=== PATIENT | female | born 1990 | race Two or more races ===

== ENCOUNTER 2016-07-10 10:44 | Emergency (ER) | payer MEDICAID ==
[2016-07-10 11:24] VITALS: BP 118/74; PULSE 98; RESP 16; TEMP 98.6; O2SAT 96
--- NOTE | 2016-07-10 12:44 | UCPHY ---
H & P Patient Type: Established Chief Complaint Nursing Narrative: anal area pain . x 4 days . irritated . Denies f/c. EDC 09/24/16 Source: Patient Exam Limitations: No limitations - Personal History LMP (Females 10-55): Tetanus Vaccine Date: WITHIN 10 YRS - Medical/Surgical History Hx Asthma: No Hx Chronic Respiratory Disease: No Hx Diabetes: No Hx Cardiac Disease: No Hx Renal Disease: No Hx Cirrhosis: No Hx Alcoholism: No Hx HIV/AIDS: No Hx Splenectomy or Spleen Trauma: No Other PMH: [facility]CP [facility]. Flu +. Tetanus UTD. Denies med surg. - Family History Significant Family History: No pertinent family hx - Social History Smoking Status: Never smoked Time Seen by Provider: 07/10/16 12:19 HPI/ROS: CHIEF COMPLAINT: rectal pain HISTORY OF PRESENT ILLNESS: 26-year-old female presents complaining of rectal pain and burning with itching x 4 days. Patient is 26 weeks with twins, 1st noticed her symptoms 4 days ago. She denies fevers, chills, nausea or vomiting, no abdominal pain, no vaginal discharge or vaginal bleeding. Patient denies history of STDs, no previous histories of HSV or no previous history of hemorrhoids. Patient denies other complaints. REVIEW OF SYSTEMS: A comprehensive 10 point review of systems is otherwise negative aside from elements mentioned in the history of present illness. (Freida Soliz) - Physical Exam Exam: GEN: Awake, alert, oriented, no acute distress RESP: nl resp effort Cardiac regular rate and rhythm :fluid filled blisters to perineal area between rectum and vagina some of which have erupted. No surrounding erythema, no vaginal discharge, no hemorrhoids. (Freida Soliz) Constitutional: Initial Vital Signs Temperature (C) 37 C 07/10/16 11:19 Heart Rate 98 07/10/16 11:19 Respiratory Rate 16 07/10/16 11:19 Blood Pressure 118/74 07/10/16 11:19 O2 Sat (%) 96 07/10/16 11:19 O2 Delivery Mode Room Air Allergies/Adverse Reactions: No Known Allergies Allergy (Verified 07/10/16 11:24) Home Medications: Medication Instructions Recorded Pnv95/Ferrous Fumarate/FA 1 each PO DAILY #30 tablet 02/02/16 [ Vitamin Tablet] Acyclovir 400 mg PO TID 10 Days 07/10/16 Hydrocodone/APAP 5/325 [[place] 1 tab PO Q4H PRN #10 tab 07/10/16 5/325] Lidocaine 2% Jelly [Lidocaine 2% 1 ml TP Q3 PRN #1 tube 07/10/16 Jelly 30 gm] Medical Decision Making ED Course/Re-evaluation: 26-year-old female who is 26 weeks presents perineal sores consistent diagnosis of genital herpes. HCV swab obtained and sent to lab and is pending. Patient is discharged with a prescription of acyclovir, lidocaine jelly and Vicodin. She agrees to follow up [facility] seen a who is her OBGYN. Patient is educated on the contagiousness of this sexually transmitted disease, she is encouraged to abstain from intercourse. Patient is to return for any fevers, abdominal pain, vaginal bleeding or discharge, any other questions or concerns. (Freida Soliz) Urgent Care PA supervision Physician documentation: The patient was evaluated and managed by the physician housing assistant property manager. My co- signature indicates that I have reviewed this chart and I agree with the findings and plan of care as documented. I am is secondary supervising physician. (Chad Dalton) Differential Diagnosis: Diagnosis considered but not limited to hemorrhoid, herpes simplex virus, contact dermatitis, other STD. (Freida Soliz) Departure - Departure Disposition: Home, Routine, Self-Care Clinical Impression: HSV (herpes simplex virus) infection Condition: Good Instructions: Genital Herpes Simplex (ED) Additional Instructions: Take your medication as prescribed, 400 mg of acyclovir 3 times a day for 10 days. Take 1 [place] every 4-6 hours as needed for severe pain, this causes drowsiness, do not drive or operate machinery while taking this. Use lidocaine gel externally as needed for pain. Follow-up with your OBGYN this week for re- evaluation. Avoid having intercourse during your outbreak. Referrals: GUZMAN DELATORRE,. [Primary Care Provider] - As per Instructions Prescriptions: Acyclovir 400 mg PO TID 10 Days Lidocaine 2% Jelly [Lidocaine 2% Jelly 30 gm] 1 ml TP Q3 PRN #1 tube PRN Reason: Pain, Breakthrough Hydrocodone/APAP 5/325 [[place] 5/325] 1 tab PO Q4H PRN #10 tab PRN Reason: Pain, Moderate - PQRS PQRS Measurement: na (Freida Soliz)
[2016-07-11 22:12] LABS: SPECIMEN SOURCE PERIANAL (()); VARICELLA ZOSTER NEGATIVE (Negative)
== END 2016-07-10 13:20 | disposition home or self-care (01) ==
LOC: CED 10:44
DX: O98.312 Other infections with a predominantly sexual mode of transmission complicating pregnancy, second trimester (principal); A60.09 Herpesviral infection of other urogenital tract; O30.002 Twin pregnancy, unspecified number of placenta and unspecified number of amniotic sacs, second trimester; Z3A.26 26 weeks gestation of pregnancy
CPT/HCPCS: 87529-90; 99214-PO; G0463-PO

== ENCOUNTER 2016-07-29 12:11 | Emergency (ER) | payer MEDICAID | END 2016-07-29 12:23 | disposition left against medical advice (07) | LOC: CED 12:11 | DX: O20.0 Threatened abortion (principal); Z3A.32 32 weeks gestation of pregnancy ==

== ENCOUNTER 2017-02-25 18:10 | Emergency (ER) | payer MEDICAID ==
[2017-02-25 18:30] VITALS: BP 108/77; PULSE 88; RESP 16; TEMP 98.8; O2SAT 96
--- NOTE | 2017-02-25 18:46 | EDPHY ---
H & P Stated Complaint: RASH ABOVE L EYE AFTER GETTING EYEBROWS WAXED 5 DAYS AGO Time Seen by Provider: 02/25/17 18:33 HPI/ROS: CHIEF COMPLAINT: Rash HISTORY OF PRESENT ILLNESS: The patient is a 26-year-old female who comes to the emergency department for her child who has a cough but she is also concerned about a small rash over her left eyebrow. She states that it developed after she had her eyebrows waxed 4 days ago. She has 4 or 5 small pustules. No fever. No vision changes. She was concerned that maybe she had viral herpes. REVIEW OF SYSTEMS: Constitutional: denies: chills, fever, recent illness, recent injury EENTM: denies: blurred vision, double vision, nose congestion Respiratory: denies: cough, shortness of breath Cardiac: denies: chest pain, irregular heart rate, lightheadedness, palpitations Gastrointestinal/Abdominal: denies: abdominal pain, diarrhea, nausea, vomiting, blood streaked stools Genitourinary: denies: dysuria, frequency, hematuria, pain Musculoskeletal: denies: joint pain, muscle pain Skin: See HPI Neurological: denies: headache, numbness, paresthesia, tingling, dizziness, weakness Hematologic/Lymphatic: denies: blood clots, easy bleeding, easy bruising Immunologic/allergic: denies: HIV/AIDS, transplant EXAM: GENERAL: Well-appearing, well-nourished and in no acute distress. HEAD: Atraumatic, normocephalic. EYES: Pupils equal round and reactive to light, extraocular movements intact, sclera anicteric, conjunctiva are normal. ENT: TMs normal, nares patent, oropharynx clear without exudates. Moist mucous membranes. NECK: Normal range of motion, supple without lymphadenopathy or JVD. LUNGS: Breath sounds clear to auscultation bilaterally and equal. No wheezes rales or rhonchi. HEART: Regular rate and rhythm without murmurs, rubs or gallops. ABDOMEN: Soft, nontender, normoactive bowel sounds. No guarding, no rebound. No masses appreciated. BACK: No CVA tenderness, no spinal tenderness, step-offs or deformities EXTREMITIES: Normal range of motion, no pitting or edema. No clubbing or cyanosis. NEUROLOGICAL: Cranial nerves II through XII grossly intact. Normal speech, normal gait. 5/5 strength, normal movement in all extremities, normal sensation PSYCH: Normal mood, normal affect. SKIN: The patient has 4 or 5 small pustules over left eyebrow. Consistent with folliculitis. Source: Patient Exam Limitations: No limitations - Personal History LMP (Females 10-55): 22-28 Days Ago Current Tetanus Diphtheria and Acellular Pertussis (TDAP): Yes Tetanus Vaccine Date: WITHIN 10 YRS - Medical/Surgical History Hx Asthma: No Hx Chronic Respiratory Disease: No Hx Diabetes: No Hx Cardiac Disease: No Hx Renal Disease: No Hx Cirrhosis: No Hx Alcoholism: No Hx HIV/AIDS: No Hx Splenectomy or Spleen Trauma: No Other PMH: [facility]. Flu +. Tetanus UTD. Denies med surg. - Family History Significant Family History: No pertinent family hx - Social History Smoking Status: Never smoked Alcohol Use: Sober Drug Use: None Constitutional: Initial Vital Signs Temperature (C) 37.1 C 02/25/17 18:29 Heart Rate 88 02/25/17 18:29 Respiratory Rate 16 02/25/17 18:29 Blood Pressure 108/77 02/25/17 18:29 O2 Sat (%) 96 02/25/17 18:29 O2 Delivery Mode Room Air Allergies/Adverse Reactions: No Known Allergies Allergy (Verified 07/10/16 11:24) Home Medications: Medication Instructions Recorded Pnv95/Iron Fum/Folic Acid 1 each PO DAILY #30 tablet 02/02/16 [ Vitamin Tablet] Acyclovir 400 mg PO TID 10 Days 07/10/16 Hydrocodone/APAP 5/325 [[place] 1 tab PO Q4H PRN #10 tab 07/10/16 5/325] Lidocaine 2% Jelly [Lidocaine 2% 1 ml TP Q3 PRN #1 tube 07/10/16 Jelly 30 gm] Medical Decision Making ED Course/Re-evaluation: The patient was concerned about herpes because she has 6-month-old twins. This appears more consistent with the pustules or folliculitis. I recommended antibiotic ointment. The patient is happy with this and declines further workup or testing. Differential Diagnosis: Partial list of the Differential diagnosis considered include but were not limited to; folliculitis, pustules, herpes and although unlikely based on the history and physical exam, I also considered the cellulitis, herpes ophthalmicus . I discussed these differential diagnoses and the plan with the patient as well as the usual and expected course. The patient understands that the diagnosis is provisional and that in medicine we are not always correct and that further workup is often warranted. Usual and customary warnings were given. All of the patient's questions were answered. The patient was instructed to return to the emergency department should the symptoms at all worsen or return, otherwise to followup with the physician as we discussed. Departure - Departure Disposition: Home, Routine, Self-Care Clinical Impression: Pustule Condition: Fair Instructions: Folliculitis (ED) Referrals: GUZMAN DELATORRE,. [Primary Care Provider] - As per Instructions
== END 2017-02-25 18:52 | disposition home or self-care (01) ==
LOC: CED 18:10
DX: L08.9 Local infection of the skin and subcutaneous tissue, unspecified (principal)

== ENCOUNTER 2017-03-28 16:19 | Emergency (ER) | payer MEDICAID ==
[2017-03-28 16:46] VITALS: BP 116/66; PULSE 100; RESP 20; TEMP 98.6; O2SAT 95
--- NOTE | 2017-03-28 17:08 | EDPHY ---
H & P HPI/ROS: CHIEF COMPLAINT: Sore on lip History by patient HISTORY OF PRESENT ILLNESS: 26-year-old woman presents complaining of a persistent "canker sore "in the middle of her bottom lip which is pierced. Patient states that she gets frequent "canker sores "but that this 1 has not gone away for almost a month. She has had a lip piercing for about 4 months. She denies any lesions in her genital area but does say she feels a 2nd sore coming on on the left side of her lower gingiva. She is otherwise well with no fevers or systemic symptoms. REVIEW OF SYSTEMS: As in HPI, and all other systems reviewed and are negative Smoking Status: Former smoker Physical Exam: General Appearance: Alert and no distress. Head: normocephalic, atraumatic, no sinus tenderness Eyes: Pupils equal and round no injection. OP: mucus membranes moist, no tonsillar enlargement, no exudates, positive 1 cm abscess ulcer at junction of the gingiva an oral mucosa in the center of her lower lip, just below and intact piercing. Positive 3 mm red lesion on the labial surface of left lower lip just above piercing Neck: no meningismus, no cervical nodes, no submandibular nodes Skin: No rashes or lesions except as described above. Constitutional: Initial Vital Signs Temperature (C) 37.0 C 03/28/17 16:43 Heart Rate 100 03/28/17 16:43 Respiratory Rate 20 03/28/17 16:43 Blood Pressure 116/66 03/28/17 16:43 O2 Sat (%) 95 03/28/17 16:43 O2 Delivery Mode Room Air Allergies/Adverse Reactions: No Known Allergies Allergy (Verified 03/28/17 16:47) Home Medications: Medication Instructions Recorded Lidocaine 5% [Lidocaine 5% Oint] 1 ann TP TID PRN #1 ointtube 03/28/17 Neurontin 03/28/17 Valacyclovir HCl [Valacyclovir] 2,000 mg PO BID #20 tablet 03/28/17 Wellbutrin Sr 03/28/17 MDM/Departure - MDM ED Course/Re-evaluation: 26-year-old woman who is otherwise healthy with no history of immunocompromise presents with recurrent oral aphthous ulcers. I suspect this 1 is persistent because it is in the area of her piercing I am recommending she removed the piercing until the lesion has healed. We will give her a trial of oral antivirals. We discussed need for follow-up with dentist or oral surgeon if her lesion persists despite removing the piercing and oral antivirals. She is given topical lidocaine for pain control. Patient understands and is agreeable to this plan. - Depart Disposition: Home, Routine, Self-Care Clinical Impression: Oral aphthous ulcer Condition: Good Instructions: Oral Herpes Simplex Virus Infections (ED) Additional Instructions: You were seen by Dr. Deisi Levy today. Take the antiviral medicine as prescribed - 4 pills twice a day for one day only. You may use topical lidocaine for pain. If the lesion does not clear up in the next 2 weeks please follow-up with a dentist or oral surgeon to have it more closely evaluated. Return for any worsening or new concerns. Prescriptions: Lidocaine 5% [Lidocaine 5% Oint] 1 ann TP TID PRN #1 ointtube PRN Reason: pain Valacyclovir HCl [Valacyclovir] 2,000 mg PO BID #20 tablet Referrals: GUZMAN DELATORRE,. [Primary Care Provider] - As per Instructions
== END 2017-03-28 17:33 | disposition home or self-care (01) ==
LOC: CED 16:19
DX: K12.0 Recurrent oral aphthae (principal); Z87.891 Personal history of nicotine dependence

== ENCOUNTER 2017-05-17 14:02 | Emergency (ER) | payer MEDICAID ==
[2017-05-17 14:14] VITALS: RESP 18
--- NOTE | 2017-05-17 14:20 | EDPHY ---
H & P Stated Complaint: severe right calf pain for 5 days Time Seen by Provider: 05/17/17 14:11 HPI/ROS: CHIEF COMPLAINT: Right calf pain HISTORY OF PRESENT ILLNESS: The patient is a 26-year-old female who comes to the emergency department complaining of right calf pain. She states that it hurt suddenly when she was standing with flat feet leaning over a small couch. She felt a tear or pain in her right calf. It is hurt every day since then. It does not hurt with weight-bearing but does hurt with walking or muscle flexion or toe pointing. She has not had a fever. No rash. No swelling. She does not smoke. No recent travel. She did have twins is 9 months ago but has not had any problem since then. No trauma. She does have a history of chronic sciatica on both legs but states that this feels different. REVIEW OF SYSTEMS: Constitutional: denies: chills, fever, recent illness, recent injury EENTM: denies: blurred vision, double vision, nose congestion Respiratory: denies: cough, shortness of breath Cardiac: denies: chest pain, irregular heart rate, lightheadedness, palpitations Gastrointestinal/Abdominal: denies: abdominal pain, diarrhea, nausea, vomiting, blood streaked stools Genitourinary: denies: dysuria, frequency, hematuria, pain Musculoskeletal: See HPI Skin: denies: lesions, rash, jaundice, bruising Neurological: denies: headache, numbness, paresthesia, tingling, dizziness, weakness Hematologic/Lymphatic: denies: blood clots, easy bleeding, easy bruising Immunologic/allergic: denies: HIV/AIDS, transplant EXAM: GENERAL: Well-appearing, well-nourished and in no acute distress. HEAD: Atraumatic, normocephalic. EYES: Pupils equal round and reactive to light, extraocular movements intact, sclera anicteric, conjunctiva are normal. ENT: TMs normal, nares patent, oropharynx clear without exudates. Moist mucous membranes. NECK: Normal range of motion, supple without lymphadenopathy or JVD. LUNGS: Breath sounds clear to auscultation bilaterally and equal. No wheezes rales or rhonchi. HEART: Regular rate and rhythm without murmurs, rubs or gallops. ABDOMEN: Soft, nontender, normoactive bowel sounds. No guarding, no rebound. No masses appreciated. BACK: No CVA tenderness, no spinal tenderness, step-offs or deformities EXTREMITIES: Right calf tenderness and pain, positive Homans. No swelling or edema. No rash NEUROLOGICAL: Cranial nerves II through XII grossly intact. Normal speech, normal gait. 5/5 strength, normal movement in all extremities, normal sensation PSYCH: Normal mood, normal affect. SKIN: Warm, dry, normal turgor, no visible rashes or lesions. Source: Patient Exam Limitations: No limitations - Personal History Current Tetanus/Diphtheria Vaccine: No Current Tetanus Diphtheria and Acellular Pertussis (TDAP): No Tetanus Vaccine Date: WITHIN 10 YRS - Medical/Surgical History Hx Asthma: No Hx Chronic Respiratory Disease: No Hx Diabetes: No Hx Cardiac Disease: No Hx Renal Disease: No Hx Cirrhosis: No Hx Alcoholism: No Hx HIV/AIDS: No Hx Splenectomy or Spleen Trauma: No Other PMH: sciatica - Family History Significant Family History: No pertinent family hx - Social History Smoking Status: Former smoker Alcohol Use: Sober Drug Use: None Constitutional: Initial Vital Signs Temperature (C) 37.2 C 05/17/17 14:11 Heart Rate 80 05/17/17 14:11 Respiratory Rate 18 05/17/17 14:11 Blood Pressure 133/69 H 05/17/17 14:11 O2 Sat (%) 98 05/17/17 14:11 O2 Delivery Mode Room Air Allergies/Adverse Reactions: No Known Allergies Allergy (Verified 05/17/17 14:10) Home Medications: Medication Instructions Recorded Neurontin 03/28/17 Wellbutrin Sr 03/28/17 Medical Decision Making - Diagnostics Imaging Results: Imaging Impressions Extremity Venous Study 05/17/17 14:18 Impression: No deep venous thrombosis right leg. Findings and recommendations discussed with Emergency Department physician, MARÍA VEGA at 14:52 hour, 05/17/2017. Final report concurs with initial preliminary interpretation. Imaging: Discussed imaging studies w/ inbound call center agent Radiologist ED Course/Re-evaluation: We discussed the ultrasound results. The patient is reassured. I suspect that she has a muscle tear or tendon strain. She is able to stand on her Tippy toes but with significant pain. I suggested anti-inflammatories and compression and rest. She agrees with this plan and will follow up with her regular doctor. We discussed indications for returning. Differential Diagnosis: Partial list of the Differential diagnosis considered include but were not limited to; DVT, muscle strain, tendon injury and although unlikely based on the history and physical exam, I also considered fracture, infection. I discussed these differential diagnoses and the plan with the patient as well as the usual and expected course. The patient understands that the diagnosis is provisional and that in medicine we are not always correct and that further workup is often warranted. Usual and customary warnings were given. All of the patient's questions were answered. The patient was instructed to return to the emergency department should the symptoms at all worsen or return, otherwise to followup with the physician as we discussed. Departure - Departure Disposition: Home, Routine, Self-Care Clinical Impression: Right calf pain Condition: Fair Instructions: Muscle Strain (ED), Leg Pain (ED) Additional Instructions: Take ibuprofen daily as we discussed Referrals: [facility] DELATORRE,. [Clinic] - As per Instructions
[2017-05-17 15:09] VITALS: BP 128/67; PULSE 74; TEMP 98.6; O2SAT 96
== END 2017-05-17 15:09 | disposition home or self-care (01) ==
LOC: CED 14:02
DX: M79.604 Pain in right leg (principal); Z87.891 Personal history of nicotine dependence
CPT/HCPCS: 93971-PO

== ENCOUNTER 2017-10-09 10:39 | Emergency (ER) | payer MEDICAID ==
[2017-10-09] MEDS ORDERED: DEXAMETHASONE 10 MG/ML VIAL IVP ONE (10:53)
[2017-10-09] MEDS ORDERED: KETOROLAC 30 MG/1 ML SDV IVP ONE (10:53)
[2017-10-09] MEDS ORDERED: NS 1,000 ML IV ONE (10:53)
--- NOTE | 2017-10-09 10:58 | EDPHY ---
H & P Time Seen by Provider: 10/09/17 10:44 HPI/ROS: HPI Sore throat, body aches. 27-year-old female by private vehicle. She reports having a worsening sore throat since yesterday. She also describes having muscle aches and joint aches. No cough. She reports she has had a difficult time swallowing liquids because of pain since this morning. She reports intermittent fever and swollen lymph nodes in her neck. No recent dental work. ROS: Constitutional: As above. No weakness. Eyes: No discharge. No changes in vision. ENT: As above. No nasal congestion or rhinorrhea. Respiratory: No cough. No shortness of breath. Cardiac: No chest pain, no palpitations. Gastrointestinal: No abdominal pain, no vomiting, no diarrhea. Genitourinary: No hematuria. No dysuria or increased frequency with urination. Musculoskeletal: No back pain. No neck pain. No myalgias or arthralgias. Skin: No rashes. Neurological: No headache. No focal weakness or altered sensation. Past medical history: Depression. Last menstrual period 6 days ago. Social history: Nonsmoker. Here by herself. Denies alcohol. Physical Exam: General Appearance: Alert, she appears uncomfortable but not in distress. This patient is responding to questions appropriately and in full sentences. This patient appears well-hydrated and well-nourished. Eyes: Pupils equal and round no pallor or injection. No lid edema, erythema or injection. ENT, Mouth: Mucous membranes are moist. Diffuse pharyngeal erythema involving the posterior pharynx, pharyngeal arches and tonsils. Scant white exudates on the tonsils right side greater than left side. Mild pharyngeal edema. No asymmetry suggestive of abscess. No erythema or exudates. No stridor on auscultation of her neck. No voice changes. Bilateral upper anterior cervical lymphadenopathy. Respiratory: There are no retractions, lungs are clear to auscultation with good air movement bilaterally. Cardiovascular: Regular rate and rhythm. No murmur. Neurological: Motor sensory function is grossly intact. Cranial nerves are normal. Gait is normal. Skin: Warm and dry, no rashes. Musculoskeletal: Neck is supple and nontender. Extremities are symmetrical. All joints range without pain or impingement. Psychiatric: No agitation. No depression. Database: EKG: Imaging: Soft tissue neck x-ray series: No evidence of retropharyngeal abscess, epiglottitis or airway obstruction. Interpreted by me. Procedures: Emergency department course: Vital signs reviewed. IV was placed. She was started on IV normal saline with 1 L to be given over the next hour secondary to dehydration. Strep swab obtained. She has no contraindications to NSAIDs. No renal dysfunction or history of peptic ulcer disease. She will be given 30 mg of IV Toradol and 10 mg of IV Decadron initial. 11:20 a.m., patient re-evaluated. Informed a positive strep test. No allergies to penicillin. She will be given 1.2 million units of IM pen G LA. 11:45 a.m., patient re-evaluated. Sleeping comfortably. Easily arousable. No stridor. No voice changes. Results of her emergency department workup discussed. She feels comfortable going home at this time. I will send her home with 2 Vicodin tablets as well to treat her pain. I will also prescribe a 1 time dose of Decadron to be taken tomorrow. Follow-up and return to emergency department precautions thoroughly reviewed with her. All of her questions were answered. She was discharged in good condition. Differential Diagnosis: The differential diagnosis on this patient includes but is not limited to streptococcal pharyngitis, viral pharyngitis. Peritonsillar abscess, retropharyngeal abscess, epiglottitis, tracheitis unlikely. This represents a partial list of diagnoses considered. These considerations are based on history , physical exam, past history, reassessment and diagnostic testing. Smoking Status: Former smoker Constitutional: Initial Vital Signs Temperature (C) 36.6 C 10/09/17 10:59 Heart Rate 54 L 10/09/17 10:59 Respiratory Rate 20 10/09/17 10:59 Blood Pressure 128/81 H 10/09/17 10:59 O2 Sat (%) 96 10/09/17 10:59 O2 Delivery Mode Room Air Allergies/Adverse Reactions: No Known Allergies Allergy (Verified 05/17/17 14:10) Home Medications: Medication Instructions Recorded Neurontin 03/28/17 Wellbutrin Sr 03/28/17 Dexamethasone [Decadron] 8 mg PO DAILY #2 tab 10/09/17 Medical Decision Making - Data Points Laboratory Results: 10/09/17 10/09/17 10/09/17 10:59 10:30 10:30 Monoscreen NEGATIVE (NEGATIVE) Influenza A,B Rapid NEGATIVE FOR FLU (NEGATIVE) Group A Strep Screen POSITIVE H (NEGATIVE) Medications Given: Discontinued Medications Dexamethasone (Decadron Injection) 10 mg IVP EDNOW ONE Stop: 10/09/17 10:54 Last Admin: 10/09/17 11:05 Dose: 10 mg Sodium Chloride (Ns) 1,000 mls @ 0 mls/hr IV ONCE ONE; Wide Open PRN Reason: Protocol Stop: 10/09/17 10:54 Last Admin: 10/09/17 11:05 Dose: 1,000 mls Ketorolac Tromethamine (Toradol) 30 mg IVP EDNOW ONE Stop: 10/09/17 10:54 Last Admin: 10/09/17 11:05 Dose: 30 mg Penicillin G Benzathine (Bicillin L-A) 1,200,000 unit IM EDNOW ONE PRN Reason: Protocol Stop: 10/09/17 11:19 Last Admin: 10/09/17 11:28 Dose: 1,200,000 unit Departure - Departure Disposition: Home, Routine, Self-Care Clinical Impression: Acute streptococcal pharyngitis Condition: Good Instructions: Strep Throat (ED) Additional Instructions: Read and follow provided instructions. Follow-up with your primary care physician in 1-2 days for re-evaluation. Take medication as prescribed. 1 time dose of Decadron is to be taken tomorrow at about noon. You can start taking ibuprofen tonight after 8:00 p.m.. Ibuprofen dosin mg every 6 hours with meals for the next 3 days only. Take only as needed for pain. Keep well hydrated. Drink lots of fluids. Return to the emergency department for worsening symptoms, worsening pain, voice changes, stridor, difficulty breathing or other serious concerns. Referrals: GUZMAN DELATORRE [Other] - As per Instructions Prescriptions: Dexamethasone [Decadron] 8 mg PO DAILY #2 tab
[2017-10-09 11:02] VITALS: TEMP 98
[2017-10-09 11:16] VITALS: RESP 18
[2017-10-09] MEDS ORDERED: BICILLIN L-A 1200000 UNIT/2 ML SYRINGE IM ONE (11:18)
[2017-10-09] MEDS ORDERED: HYDROCODONE/APAP 5/325 TAB PO ONE (11:49)
[2017-10-09 12:21] VITALS: BP 137/62; PULSE 78; O2SAT 97
== END 2017-10-09 12:19 | disposition home or self-care (01) ==
LOC: CED 10:39
DX: J02.0 Streptococcal pharyngitis (principal); E86.9 Volume depletion, unspecified; Z87.891 Personal history of nicotine dependence
CPT/HCPCS: 70360-PO; 86308-PO; 87400-PO; 87880-PO; 96374; J0561; J1100; J1885

== ENCOUNTER 2017-10-26 14:08 | Emergency (ER) | payer MEDICAID ==
[2017-10-26 15:16] VITALS: BP 128/96
--- NOTE | 2017-10-26 15:57 | EDPHY ---
H & P Time Seen by Provider: 10/26/17 15:06 HPI/ROS: This patient that she might have a retained vaginal foreign body and requested a pelvic exam to evaluate for this. She explains that 2 days ago she had slight spotting which occasionally occurs with her in between periods without any other symptoms and used a tampon. She does not recall or removing the tampon is concerned that he may be"lost". ROS: No fevers or chills. HEENT: No complaints new line pulmonary: No complaints Cardiovascular: No lightheadedness GI: No abdominal pain. No nausea vomiting. : Last menstrual. Normal timing. No vaginal discharge. No vaginal pain. No urinary symptoms. Integumentary: No skin rash or genital lesions. 7 point ROS is otherwise negative. Past Medical/Surgical History: . Otherwise healthy Smoking Status: Former smoker Physical Exam: Physical Exam Vital signs are normal. General: No acute distress Lungs: No respiratory distress. Cardiac: Brisk capillary refill is intact throughout. Skin: No rash or pallor. Pelvic: External genitalia are normal with no lesions. Speculum exam reveals healthy appearing cervix with no erythema, discharge no vaginal foreign bodies, abrasions or discharge. Neuro: Alert with no sensorimotor deficits. Constitutional: Initial Vital Signs Temperature (C) 37.7 C 10/26/17 15:14 Heart Rate 96 10/26/17 15:14 Respiratory Rate 18 10/26/17 15:14 Blood Pressure 128/96 H 10/26/17 15:14 O2 Sat (%) 98 10/26/17 15:14 O2 Delivery Mode Room Air Allergies/Adverse Reactions: No Known Allergies Allergy (Verified 10/26/17 15:14) Home Medications: Medication Instructions Recorded NK [No Known Home Meds] 10/26/17 MDM/Departure - MDM ED Course/Re-evaluation: Discussion: Patient was not sure if she removed her tampon admits that she saw commercial with a woman who developed necrotizing fasciitis and lost her leg after leaving in a tampon in this prompted her fever of potential retained vaginal foreign body. Her exam is normal today. No evidence of STDs clinically or other abnormal findings. - Depart Disposition: Home, Routine, Self-Care Clinical Impression: Vaginal complaints Condition: Good Instructions: Vaginal Foreign Body (ED) Additional Instructions: Diagnosis: Vaginal symptoms Your vaginal speculum exam and cervix exam today is normal. There is no evidence of foreign body, infection or other abnormal findings at this time. Plan: Follow up with primary care physician for any ongoing symptoms. Referrals: [facility] DELATORRE [Other] - As per Instructions
== END 2017-10-26 15:59 | disposition home or self-care (01) ==
LOC: CED 14:08
DX: Z03.89 Encounter for observation for other suspected diseases and conditions ruled out (principal); Z87.891 Personal history of nicotine dependence

== ENCOUNTER 2018-01-01 15:42 | Emergency (ER) | payer MEDICAID ==
[2018-01-01] MEDS ORDERED: CLINDAMYCIN 150MG PREPACK#6 BTL TAKEHOME ONE (16:19)
[2018-01-01] MEDS ORDERED: HYDROCOD/APAP 5/325 PREPACK#6 BTL TAKEHOME ONE (16:19)
--- NOTE | 2018-01-01 16:19 | EDPHY ---
H & P Time Seen by Provider: 01/01/18 15:53 HPI/ROS: CHIEF COMPLAINT: Dental pain HISTORY OF PRESENT ILLNESS: The patient is a 27-year-old healthy female who comes to the emergency department complaining of dental pain. She states that it is becoming more painful over the last couple of weeks. She has an appointment with the dentist but not for 3 weeks from now. No trauma. No fever. No swelling. REVIEW OF SYSTEMS: Constitutional: denies: chills, fever, recent illness, recent injury EENTM: See HPI denies: blurred vision, double vision, nose congestion Respiratory: denies: cough, shortness of breath Cardiac: denies: chest pain, irregular heart rate, lightheadedness, palpitations Gastrointestinal/Abdominal: denies: abdominal pain, diarrhea, nausea, vomiting, blood streaked stools Genitourinary: denies: dysuria, frequency, hematuria, pain Musculoskeletal: denies: joint pain, muscle pain Skin: denies: lesions, rash, jaundice, bruising Neurological: denies: headache, numbness, paresthesia, tingling, dizziness, weakness Hematologic/Lymphatic: denies: blood clots, easy bleeding, easy bruising Immunologic/allergic: denies: HIV/AIDS, transplant EXAM: GENERAL: Well-appearing, well-nourished and in no acute distress. HEAD: Atraumatic, normocephalic. EYES: Pupils equal round and reactive to light, extraocular movements intact, sclera anicteric, conjunctiva are normal. ENT: See diagram, TMs normal, nares patent, oropharynx clear without exudates. Moist mucous membranes. NECK: Normal range of motion, supple without lymphadenopathy or JVD. LUNGS: Breath sounds clear to auscultation bilaterally and equal. No wheezes rales or rhonchi. HEART: Regular rate and rhythm without murmurs, rubs or gallops. ABDOMEN: Soft, nontender, normoactive bowel sounds. No guarding, no rebound. No masses appreciated. BACK: No CVA tenderness, no spinal tenderness, step-offs or deformities EXTREMITIES: Normal range of motion, no pitting or edema. No clubbing or cyanosis. NEUROLOGICAL: Cranial nerves II through XII grossly intact. Normal speech, normal gait. 5/5 strength, normal movement in all extremities, normal sensation PSYCH: Normal mood, normal affect. SKIN: Warm, dry, normal turgor, no visible rashes or lesions. Source: Patient - Personal History Tetanus Vaccine Date: WITHIN 10 YRS - Medical/Surgical History Hx Asthma: No Hx Chronic Respiratory Disease: No Hx Diabetes: No Hx Cardiac Disease: No Hx Renal Disease: No Hx Cirrhosis: No Hx Alcoholism: No Hx HIV/AIDS: No Hx Splenectomy or Spleen Trauma: No Other PMH: sciatica / depression - Family History Significant Family History: No pertinent family hx - Social History Smoking Status: Former smoker Alcohol Use: None Constitutional: Initial Vital Signs Temperature (C) 36.9 C 01/01/18 16:16 Heart Rate 86 01/01/18 16:16 Respiratory Rate 20 01/01/18 16:16 Blood Pressure 158/106 H 01/01/18 16:16 O2 Sat (%) 96 01/01/18 16:16 O2 Delivery Mode Room Air Allergies/Adverse Reactions: No Known Allergies Allergy (Verified 10/26/17 15:14) Home Medications: Medication Instructions Recorded NK [No Known Home Meds] 10/26/17 ED Images - Head Mouth: 1 - Decayed and eroded, surrounding erythema, tender Medical Decision Making ED Course/Re-evaluation: Patient has significant decay and likely mild infection abscess. I will start her on antibiotics and short supply of pain medication until she can follow up with the dentist. [facility] She is grateful for this. Differential Diagnosis: Partial list of the Differential diagnosis considered include but were not limited to; abscess, dental jessica, fracture and although unlikely based on the history and physical exam, I also considered pharyngeal abscess, sepsis. I discussed these differential diagnoses and the plan with the patient as well as the usual and expected course. The patient understands that the diagnosis is provisional and that in medicine we are not always correct and that further workup is often warranted. Usual and customary warnings were given. All of the patient's questions were answered. The patient was instructed to return to the emergency department should the symptoms at all worsen or return, otherwise to followup with the physician as we discussed. - Data Points Medications Given: Discontinued Medications Hydrocodone Bitart/Acetaminophen (Emmett 5/325mg Prepack#6) 1 btl TAKEHOME EDNOW ONE Stop: 01/01/18 16:20 Last Admin: 01/01/18 16:36 Dose: 1 btl Clindamycin (Cleocin 150 Mg Prepack#6) 1 btl TAKEHOME EDNOW ONE PRN Reason: Protocol Stop: 01/01/18 16:20 Last Admin: 01/01/18 16:35 Dose: 1 btl Departure - Departure Disposition: Home, Routine, Self-Care Clinical Impression: Dental caries, Dental infection Condition: Fair Instructions: Clindamycin (By mouth), Hydrocodone/Acetaminophen (By mouth), Toothache (ED) [facility]errals: [facility] [[facility]] - 1 day without fail
[2018-01-01 17:07] VITALS: BP 146/98
== END 2018-01-01 16:39 | disposition home or self-care (01) ==
LOC: CED 15:42
DX: K04.7 Periapical abscess without sinus (principal); Z87.891 Personal history of nicotine dependence

== ENCOUNTER 2018-04-04 03:28 | Emergency (ER) | payer MEDICAID ==
[2018-04-04] MEDS ORDERED: KETOROLAC 30 MG/1 ML SDV IM ONE (03:56)
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
[2018-04-04] MEDS ORDERED: LIDOCAINE 4%/MENTHOL 1% PATCH TD ONE (04:38)
[2018-04-04 04:59] VITALS: BP 114/72
[2018-04-04] MEDS ORDERED: PATCH REMOVAL 1 EA PATCH TD SCH (21:00)
== END 2018-04-04 04:59 | disposition home or self-care (01) ==
LOC: CED 03:28
DX: M54.2 Cervicalgia (principal); G89.29 Other chronic pain; V43.52XA Car driver injured in collision with other type car in traffic accident, initial encounter; Y92.410 Unspecified street and highway as the place of occurrence of the external cause; F17.200 Nicotine dependence, unspecified, uncomplicated
CPT/HCPCS: 71045-PO; 72040-PO; J1885

== ENCOUNTER 2018-04-24 15:47 | Emergency (ER) | payer MEDICAID ==
[2018-04-24 16:12] VITALS: BP 122/83
--- NOTE | 2018-04-24 16:44 | EDPHY ---
H & P Time Seen by Provider: 04/24/18 16:00 HPI/ROS: This patient complains of itchy scalp. She explains that for the past 2 months she has had this issue. She reveals that she 1st started noticing the itching when she tried at plan of only washing her hair 4 times a month but then over the past 2 weeks has been shampoo her hair dyed daily with head shoulders is still has significant itching that is preventing sleep. She also feels that she has had increased hair loss during the same period of time reporting that she loses approximately 6 hears a day when she pulls on her long hair. She is concerned about potential thyroid disorder as her mother has a history of hypothyroid. She is also concerned about potential folliculitis based on her Internet search. ROS: Constitutional: No fevers. No other constitutional symptoms HEENT: She denies any URI symptoms recently. Integumentary: No skin rash or detectable scalp lesions. She denies any dandruff. Neuro: She denies any increased anxiety over baseline-no new social stressors. 5 point ROS is otherwise negative Smoking Status: Former smoker Physical Exam: Physical Exam Vital signs are normal. General: No acute distress HEENT: Patient has very thick head of hair and I appreciate no skin abnormalities on her scalp on close inspection. Hair pull test is negative for easy hair loss. I appreciate no evidence of lice with direct inspection of her hair. There is no erythema or desquamation or other skin abnormalities detectable on the patient's scalp. Nose: Clear bilaterally. Oropharynx: No erythema or exudates. No dysphonia. No drooling or stridor. Eyes: Pupils equal and react to light. Extraocular motions are intact. Integumentary: No skin rash Neck: Supple with no meningismus. No lymphadenopathy Lungs: No respiratory distress. Cardiac: Brisk capillary refill throughout Neuro: Alert with no focal deficits noted. Psychiatric: The patient has normal rate of speech, no psychotic symptoms, normal affect. Initial differential diagnosis: Dermatitis, hypothyroid, conversion disorder Constitutional: Initial Vital Signs Heart Rate 81 04/24/18 16:08 Blood Pressure 122/83 H 04/24/18 16:08 O2 Sat (%) 97 04/24/18 16:08 O2 Delivery Mode Room Air Allergies/Adverse Reactions: No Known Allergies Allergy (Verified 04/04/18 03:40) Home Medications: Medication Instructions Recorded Acyclovir 04/04/18 Hydrocodone-Acetamin 5-325 mg 04/04/18 hydrOXYzine HCL [Hydroxyzine HCl] 50 - 100 mg PO QID PRN #80 tablet 04/24/18 MDM/Departure - MDM Diagnostics: Patient's TSH is normal ED Course/Re-evaluation: Discussion: Patient with normal appearing scalp but intense itching this providing sleep. Counseled her to try a hypoallergenic shampoo. Will prescribe hydroxyzine for itching that prevents sleep. Encouraged follow up with [facility] for any ongoing symptoms despite treatment plan. TSH is pending. - Depart Disposition: Home, Routine, Self-Care Clinical Impression: Scalp itch, Hair loss Condition: Good Instructions: Hydroxyzine (By mouth), Itchy Skin (ED) Additional Instructions: Diagnosis: Scalp itching 2. Hair loss Plan: Switch to Nioxin or similar shampoo Hydroxyzine medication for itching as needed Will call you regarding her TSH test result later this evening Follow up with Dr. Reece, [facility] for any ongoing symptoms despite treatment plan Prescriptions: hydrOXYzine HCL [Hydroxyzine HCl] 50 - 100 mg PO QID PRN #80 tablet PRN Reason: Itching Referrals: [facility] DELATORRE [Other] - As per Instructions EDGARDO REECE [Medical Doctor] - As per Instructions
== END 2018-04-24 17:12 | disposition home or self-care (01) ==
LOC: CED 15:47
DX: L29.9 Pruritus, unspecified (principal); L65.9 Nonscarring hair loss, unspecified; Z87.891 Personal history of nicotine dependence

== ENCOUNTER 2018-06-11 13:42 | Emergency (ER) | payer MEDICAID ==
[2018-06-11 13:54] VITALS: BP 140/100
--- NOTE | 2018-06-11 14:20 | EDPHY ---
H & P Time Seen by Provider: 06/11/18 14:01 HPI/ROS: This patient describes right eye conjunctival injection over the past 24 hr with recent exposure to her child was diagnosed with bacterial conjunctivitis last week. She describes minimal irritation associated with this and no other symptoms. She notes no exacerbating or alleviating factors. She denies any change in vision. She is not were contacts. ROS: Constitutional: No fever HEENT: No recent eye trauma. Neuro: No complaints Integumentary: No skin rash 5 point review of symptoms is performed and otherwise negative with exception of pertinent positives and negatives listed in HPI and ROS Smoking Status: Former smoker Physical Exam: Physical Exam Vital signs are normal. General: No acute distress HEENT: Nose: Clear bilaterally. No sinus tenderness to percussion. Ears: External canals and tympanic membranes are clear with no erythema or abnormal findings bilaterally. Oropharynx: No erythema or exudates. No dysphonia. No drooling or stridor. Eyes: Pupils equal and react to light. Extraocular motions are intact. Mild conjunctival injection of the right eye. Neck: Supple with no meningismus. No lymphadenopathy Skin: No rash or pallor. Neuro: Alert with no focal deficits noted. Initial differential diagnosis: Bacterial versus viral conjunctivitis Constitutional: Initial Vital Signs Temperature (C) 36.5 C 06/11/18 13:51 Heart Rate 94 06/11/18 13:51 Respiratory Rate 16 06/11/18 13:51 Blood Pressure 140/100 H 06/11/18 13:51 O2 Sat (%) 95 06/11/18 13:51 O2 Delivery Mode Room Air Allergies/Adverse Reactions: No Known Allergies Allergy (Verified 06/11/18 13:50) Home Medications: Medication Instructions Recorded Acyclovir 04/04/18 Sulfacetamide 10% [Bleph-10 10%] 2 drops LEFTEYE Q2 #1 opht.btl 06/11/18 MDM/Departure - Depart Disposition: Home, Routine, Self-Care Clinical Impression: Conjunctivitis Qualifiers: Conjunctivitis type: acute Acute conjunctivitis type: unspecified Laterality: right Qualified Code(s): H10.31 - Unspecified acute conjunctivitis, right eye Condition: Good Instructions: Conjunctivitis (ED) Additional Instructions: Diagnosis: Conjunctivitis Plan: Wash hands frequently Sulfacetamide eyedrops Return for any significant worsening despite treatment plan Prescriptions: Sulfacetamide 10% [Bleph-10 10%] 2 drops LEFTEYE Q2 #1 opht.btl Referrals: NONE *PRIMARY CARE P,. [Primary Care Provider] - As per Instructions Latoya Connolly MD [Medical Doctor] - As per Instructions
== END 2018-06-11 14:30 | disposition home or self-care (01) ==
LOC: CED 13:42
DX: H10.31 Unspecified acute conjunctivitis, right eye (principal); Z87.891 Personal history of nicotine dependence

== ENCOUNTER 2018-06-26 18:15 | Emergency (ER) | payer MEDICAID ==
--- NOTE | 2018-06-26 18:38 | EDPHY ---
H & P Time Seen by Provider: 06/26/18 18:31 HPI/ROS: CHIEF COMPLAINT: sore throat, body aches HISTORY OF PRESENT ILLNESS: The patient is a 28-year-old healthy female who comes to the emergency department complaining of a sore throat and body aches. She states that it began 2 days ago. She is here with 3 of her children who are also ill with upper respiratory symptoms. She states that they have primarily been tugging at the ears. No cough. They have also have mild diarrhea. Nonbloody. No abdominal pain. No vomiting. No shortness of breath. The patient denies having any chest pain. Severity: Moderate Modifying factors: None REVIEW OF SYSTEMS: Constitutional: denies: chills, fever, recent illness, recent injury EENTM: See HPI Respiratory: denies: cough, shortness of breath Cardiac: denies: chest pain, irregular heart rate, lightheadedness, palpitations Gastrointestinal/Abdominal: denies: abdominal pain, diarrhea, nausea, vomiting, blood streaked stools Genitourinary: denies: dysuria, frequency, hematuria, pain Musculoskeletal: See HPI Skin: denies: lesions, rash, jaundice, bruising Neurological: denies: headache, numbness, paresthesia, tingling, dizziness, weakness Hematologic/Lymphatic: denies: blood clots, easy bleeding, easy bruising Immunologic/allergic: denies: HIV/AIDS, transplant 10 systems reviewed and negative except as noted EXAM: GENERAL: Well-appearing, well-nourished and in no acute distress. HEAD: Atraumatic, normocephalic. EYES: Pupils equal round and reactive to light, extraocular movements intact, sclera anicteric, conjunctiva are normal. ENT: TMs normal, nares patent, oropharynx slightly erythematous without exudates. Moist mucous membranes. NECK: Normal range of motion, supple without lymphadenopathy or JVD. LUNGS: Breath sounds clear to auscultation bilaterally and equal. No wheezes rales or rhonchi. HEART: Regular rate and rhythm without murmurs, rubs or gallops. ABDOMEN: Soft, nontender, normoactive bowel sounds. No guarding, no rebound. No masses appreciated. BACK: No CVA tenderness, no spinal tenderness, step-offs or deformities EXTREMITIES: Normal range of motion, no pitting or edema. No clubbing or cyanosis. NEUROLOGICAL: Cranial nerves II through XII grossly intact. Normal speech, normal gait. 5/5 strength, normal movement in all extremities, normal sensation , normal reflexes PSYCH: Normal mood, normal affect. SKIN: Warm, dry, normal turgor, no visible rashes or lesions. Source: Patient Exam Limitations: No limitations - Personal History Tetanus Vaccine Date: WITHIN 10 YRS - Medical/Surgical History Hx Asthma: No Hx Chronic Respiratory Disease: No Hx Diabetes: No Hx Cardiac Disease: No Hx Renal Disease: No Hx Cirrhosis: No Hx Alcoholism: No Hx HIV/AIDS: No Hx Splenectomy or Spleen Trauma: No Other PMH: sciatica / depression. - Family History Significant Family History: No pertinent family hx - Social History Smoking Status: Former smoker Alcohol Use: Sober Drug Use: None Constitutional: Initial Vital Signs Temperature (C) 36.9 C 06/26/18 18:43 Heart Rate 85 06/26/18 18:43 Respiratory Rate 18 06/26/18 18:43 Blood Pressure 130/84 H 06/26/18 18:43 O2 Sat (%) 96 06/26/18 18:43 O2 Delivery Mode Room Air Allergies/Adverse Reactions: No Known Allergies Allergy (Verified 06/26/18 18:41) Home Medications: Medication Instructions Recorded Acyclovir 04/04/18 "Enlyte" 06/26/18 Gabapentin 06/26/18 Wellbutrin Sr 06/26/18 Medical Decision Making ED Course/Re-evaluation: The patient strep throat swab is negative. We discussed rest and hydration. She is requesting a note saying that her 3-year-old can go to daycare. Differential Diagnosis: Partial list of the Differential diagnosis considered include but were not limited to; pharyngitis, upper respiratory tract infection, strep throat, influenza and although unlikely based on the history and physical exam, I also considered pneumonia, sepsis. I discussed these differential diagnoses and the plan with the patient as well as the usual and expected course. The patient understands that the diagnosis is provisional and that in medicine we are not always correct and that further workup is often warranted. Usual and customary warnings were given. All of the patient's questions were answered. The patient was instructed to return to the emergency department should the symptoms at all worsen or return, otherwise to followup with the physician as we discussed. - Data Points Point of Care Test Results: Strep Strep Throat Swab Collection 06/26/18 Date Strep Throat Swab Swab 18:35 Collection Time Strep Result Not Detected Departure - Departure Disposition: Home, Routine, Self-Care Clinical Impression: Upper respiratory infection Qualifiers: URI type: unspecified URI Qualified Code(s): J06.9 - Acute upper respiratory infection, unspecified Condition: Fair Instructions: Upper Respiratory Infection (ED) Referrals: SHANIA,JUAN RAMON [Other] - 2-3 days, if not improved
[2018-06-26 18:44] VITALS: BP 130/84
== END 2018-06-26 19:05 | disposition home or self-care (01) ==
LOC: CED 18:15
DX: J06.9 Acute upper respiratory infection, unspecified (principal); Z87.891 Personal history of nicotine dependence

== ENCOUNTER 2018-07-15 11:23 | Emergency (ER) | payer MEDICAID ==
[2018-07-15 11:32] VITALS: BP 137/73
[2018-07-15] MEDS ORDERED: IBUPROFEN 600 MG TAB PO ONE (11:32)
--- NOTE | 2018-07-15 12:17 | EDPHY ---
H & P Time Seen by Provider: 07/15/18 12:08 HPI/ROS: This patient reports a 3 week history of nasal congestion with increasing maxillary sinus pain over the past week to 10 days describes achy in nature that worsens when she bends forward or coughs. She has associated yellowish to greenish nasal discharge. She also reports left ear pressure that is mild. She has occasional cough but no other pulmonary symptoms. She came in by private vehicle for evaluation. ROS: Constitutional: No high fevers or chills. HEENT: As per HPI Neuro: No generalized headache or confusion. No neck stiffness. Integumentary: No skin rash Pulmonary: No pleuritic pain, hemoptysis or shortness of breath Cardiovascular: No lightheadedness or calf swelling or pain GI: No abdominal pain, vomiting diarrhea 7 point review of symptoms is performed and otherwise negative with exception of pertinent positives and negatives listed in HPI and ROS Smoking Status: Former smoker Physical Exam: Physical Exam Vital signs are normal. General: No acute distress HEENT: Nose: Yellow discharge bilaterally. With maxillary sinus tenderness to percussion bilaterally. Ears: External canals and tympanic membranes are clear with no erythema or abnormal findings bilaterally. Oropharynx: No erythema or exudates. No dysphonia. No drooling or stridor. Eyes: Pupils equal and react to light. Extraocular motions are intact. Neck: Supple with no meningismus. No lymphadenopathy Lungs: Clear to auscultation bilaterally with no rales, rhonchi or wheeze. No respiratory distress. Cardiac: Regular rate and rhythm with no murmur gallop or rub Skin: No rash or pallor. Neuro: Alert with no focal deficits noted. Initial differential diagnosis: Acute bacterial sinusitis, rhino sinusitis- viral, serous otitis, viral URI Constitutional: Initial Vital Signs Temperature (C) 36.7 C 07/15/18 11:29 Heart Rate 74 07/15/18 11:29 Respiratory Rate 16 07/15/18 11:29 Blood Pressure 137/73 H 07/15/18 11:29 O2 Sat (%) 98 07/15/18 11:29 O2 Delivery Mode Room Air Allergies/Adverse Reactions: No Known Allergies Allergy (Verified 07/15/18 11:30) Home Medications: Medication Instructions Recorded Acyclovir 04/04/18 "Enlyte" 06/26/18 Gabapentin 06/26/18 Wellbutrin Sr 06/26/18 Azithromycin [Zithromax] 250 mg PO DAILY #6 tab 07/15/18 Fluticasone Nasal [Flonase Nasal 2 sprays NASAL DAILY #1 mdi 07/15/18 [place] (RX)] MDM/Departure - MDM Medications Given: Discontinued Medications Ibuprofen (Motrin) 600 mg PO EDNOW ONE Stop: 07/15/18 11:33 Last Admin: 07/15/18 11:35 Dose: 600 mg ED Course/Re-evaluation: Discussion: Given duration of symptoms a classic findings will treat her for bacterial sinusitis with Zithromax and Flonase. Also recommended ibuprofen Tylenol. Patient understands need to return should she develop any significant worsening despite treatment plan. She will follow up with primary care physician for any ongoing symptoms despite treatment plan. She has no red flag findings that would suggest HABILITATIVE INTERVENTIONIST infection or other concerns. - Depart Disposition: Home, Routine, Self-Care Clinical Impression: Maxillary sinusitis, acute Qualifiers: Recurrence: not specified as recurrent Qualified Code(s): J01.00 - Acute maxillary sinusitis, unspecified Condition: Good Instructions: Sinusitis (ED) Additional Instructions: Diagnosis: Acute sinusitis Plan: Ibuprofen Tylenol for pain Humidifier Flonase steroid nasal spray Zithromax antibiotic Return for any significant worsening despite the treatment plan Prescriptions: Azithromycin [Zithromax] 250 mg PO DAILY #6 tab Fluticasone Nasal [Flonase Nasal [place] (RX)] 2 sprays NASAL DAILY #1 mdi Referrals: GUZMAN,UNA [Other] - As per Instructions
== END 2018-07-15 12:20 | disposition home or self-care (01) ==
LOC: CED 11:23
DX: J01.00 Acute maxillary sinusitis, unspecified (principal); Z87.891 Personal history of nicotine dependence
CPT/HCPCS: 99283-ER

== ENCOUNTER 2018-09-12 16:30 | Emergency (ER) | payer MEDICAID ==
[2018-09-12 16:43] VITALS: BP 124/100
--- NOTE | 2018-09-12 17:33 | EDPHY ---
H & P Time Seen by Provider: 09/12/18 17:10 HPI/ROS: Chief complaint. Tooth pain HPI. Patient is 20-year-old female with right upper dental pain for 2 weeks. She has a wisdom tooth that is growing in a little bit crooked and causing her pain. Pain is especially worse with chewing and biting. Somewhat temperature sensitive. No fever. No sore throat. ROS 10 systems were reviewed and negative with the exception of the elements mentioned in the history of present illness Past Medical/Surgical History: Sciatica, depression Social History: Single, nonsmoker, no alcohol Smoking Status: Former smoker Physical Exam: General Appearance: Alert well-developed female mild distress vital signs stable Eyes: Pupils equal and round no pallor or injection. ENT, right upper posterior tooth is growing in somewhat sideways. There is mild erythema and swelling adjacent to the tooth. No evidence for abscess Respiratory: There are no retractions, lungs are clear to auscultation. Cardiovascular: Regular rate and rhythm. Gastrointestinal: Abdomen is soft and nontender, no masses, bowel sounds normal. Neurological: Awake and alert, sensory and motor exams grossly normal. Skin: Warm and dry, no rashes. Musculoskeletal: Neck is supple nontender. Extremities symmetrical, full range of motion. Psychiatric: Patient is oriented X 3, there is no agitation. Constitutional: Initial Vital Signs Temperature (C) 36.8 C 09/12/18 16:39 Heart Rate 91 09/12/18 16:39 Respiratory Rate 16 09/12/18 16:39 Blood Pressure 124/100 H 09/12/18 16:39 O2 Sat (%) 96 09/12/18 16:39 O2 Delivery Mode Room Air Allergies/Adverse Reactions: No Known Allergies Allergy (Verified 07/15/18 11:30) Home Medications: Medication Instructions Recorded Acyclovir 04/04/18 "Enlyte" 06/26/18 Gabapentin 06/26/18 Wellbutrin Sr 06/26/18 Azithromycin [Zithromax] 250 mg PO DAILY #6 tab 07/15/18 Fluticasone Nasal [Flonase Nasal 2 sprays NASAL DAILY #1 mdi 07/15/18 [place] (RX)] Penicillin V Potassium 500 mg PO TID #20 tablet 09/12/18 oxyCODONE/APAP 5/325 [Percocet 1 tab PO Q6H PRN #10 tab 09/12/18 5/325] Medical Decision Making ED Course/Re-evaluation: Patient is referred to dental aid. Dental aid is called and message is left Patient and I discussed treatment plan including criteria for return importance of follow-up and further evaluation. She expresses understanding and agreement Differential Diagnosis: Gingivitis, abscess are considered Departure - Departure Disposition: Home, Routine, Self-Care Clinical Impression: Pain, dental Condition: Good Instructions: Toothache (ED) Additional Instructions: Ibuprofen 600 mg every 6 hr for pain. Percocet in addition as needed for pain Penicillin as antibiotic Call dental aid to schedule appointment Referrals: NONE *PRIMARY CARE P,. [Primary Care Provider] - As per Instructions [facility] [Outside] - As per Instructions Prescriptions: oxyCODONE/APAP 5/325 [Percocet 5/325] 1 tab PO Q6H PRN #10 tab PRN Reason: Pain, Moderate Penicillin V Potassium 500 mg PO TID #20 tablet
== END 2018-09-12 17:42 | disposition home or self-care (01) ==
LOC: CED 16:30
DX: K08.89 Other specified disorders of teeth and supporting structures (principal)
CPT/HCPCS: 99284-ER